=== PATIENT | male | born 1995 ===

== ENCOUNTER 2017-03-30 00:31 | Emergency (ER) | payer OTHER ==
[2017-03-30 00:46] VITALS: TEMP 97.5
[2017-03-30] MEDS ORDERED: Naproxen 550 mg Tab PO STA (00:54)
[2017-03-30] MEDS ORDERED: Naproxen 550 mg Tab PO ONE (01:00)
--- NOTE | 2017-03-30 01:59 | C.PDOC ---
History Of Present Illness 22 year old male presents to the ER with a complaint of neck pain and lower back pain after he slipped and fell while going down some steps at a parking garage. He denies head injury, LOC, dizziness, nausea, vomiting, visual changes , chest pain, SOB, abdominal pain. Time Seen by Provider: 03/30/17 00:40 Chief Complaint (Nursing): Back Pain History Per: Patient History/Exam Limitations: no limitations Onset/Duration Of Symptoms: Hrs Current Symptoms Are (Timing): Still Present Quality Of Discomfort: "Pain" Severity: Mild Previous Symptoms: None Associated Symptoms: None Exacerbating Factor(s): Movement Past Medical History Reviewed: Historical Data, Nursing Documentation, Vital Signs Vital Signs: Last Vital Signs Temp 97.5 F L 03/30/17 00:43 Pulse 68 03/30/17 02:02 Resp 16 03/30/17 02:02 BP 126/78 03/30/17 02:02 Pulse Ox 98 03/30/17 02:42 - Medical History PMH: No Chronic Diseases Surgical History: No Surg Hx Family History: States: No Known Family Hx - Social History Hx Alcohol Use: No Hx Substance Use: No Review Of Systems Except As Marked, All Systems Reviewed And Found Negative. Cardiovascular: Negative for: Chest Pain, Palpitations Respiratory: Negative for: Shortness of Breath Gastrointestinal: Negative for: Nausea, Vomiting, Abdominal Pain Musculoskeletal: Positive for: Neck Pain, Back Pain Neurological: Negative for: Headache, Dizziness Physical Exam - Physical Exam Appears: Well, Non-toxic, No Acute Distress Skin: Normal Color, Warm, Dry Head: Atraumatic, Normacephalic, No Swelling, No Abrasion, No Laceration Eye(s): bilateral: Normal Inspection, PERRL, EOMI Oral Mucosa: Moist Neck: Normal, Normal ROM, No Midline Cervical Tenderness, No Paracervical Tenderness, No Step Off Deformity, Supple Chest: Symmetrical, No Tenderness Cardiovascular: Rhythm Regular Respiratory: Normal Breath Sounds, No Rales, No Rhonchi, No Wheezing Gastrointestinal/Abdominal: Normal Exam, Bowel Sounds, Soft, No Tenderness Back: No CVA Tenderness, No Vertebral Tenderness, No Decreased ROM, Paraspinal Tenderness (Mild thoracic at T4-T5 and lumbar at L3-L4) Extremity: Normal ROM (x4), No Tenderness, No Deformity, No Swelling Extremity: Bilateral: Atraumatic, Normal Color And Temperature, Normal ROM Neurological/Psych: Oriented x3, Normal Speech, Normal Cognition, Normal Motor, Normal Sensation Gait: Steady ED Course And Treatment O2 Sat by Pulse Oximetry: 98 (Room air) Pulse Ox Interpretation: Normal - Radiology CXR: Interpreted by Me, Viewed By Me CXR Interpretation: Yes: No Acute Disease. No: Infiltrates, Pnemothorax, Other (Rib fracture) - Other Rad Cervical Spine x-ray X-Ray: Interpreted by Me, Viewed By Me Interpretation: No fracture or listhesis. Lumbar Spine x-ray X-Ray: Interpreted by Me, Viewed By Me Interpretation: No fracture or listhesis. Progress Note: CXR, cervical spine, and lumbar spine x-rays ordered and reviewed. Patient given PO Naprosyn and Flexeril. Reevaluation Time: 01:50 Reassessment Condition: Improved (Patient reassessed, is sleeping comfortably, easily arousable, states pain has improved. Xrays (-) for acute bony injury. Rxs given for naprosyn and flexeril, and patient instructed to follow up with PMD/clinic in 1-2 days. He understands he should return to [facility] if symptoms worsen.) Disposition Counseled Patient/Family Regarding: Studies Performed, Diagnosis, Need For Followup, Rx Given - Disposition Referrals: [facility] [Outside] Disposition: HOME/ ROUTINE Disposition Time: 01:50 Condition: STABLE Additional Instructions: FOLLOW UP WITH YOUR DOCTOR IN 1-2 DAYS USE MEDICATIONS NEEDED RETURN TO EMERGENCY ROOM IF SYMPTOMS WORSEN Prescriptions: Cyclobenzaprine [Cyclobenzaprine HCl] 10 mg PO BID PRN #15 tab PRN Reason: Muscle Spasm Naproxen [Naprosyn Tab] 375 mg PO BID PRN #20 tab PRN Reason: pain Instructions: Acute Low Back Pain (ED), Cervical Sprain (ED) Forms: [employer] (Mongolian) Print Language: PALESTINIAN - POA Present On Arrival: None - Clinical Impression Clinical Impression: Lumbar sprain, Cervical sprain, Fall - Scribe Statement The provider has reviewed the documentation as recorded by the Scribyee Dueñas All medical record entries made by the Scribe were at my direction and personally dictated by me. I have reviewed the chart and agree that the record accurately reflects my personal performance of the history, physical exam, medical decision making, and the department course for this patient. I have also personally directed, reviewed, and agree with the discharge instructions and disposition.
[2017-03-30 02:03] VITALS: BP 126/78; PULSE 68; RESP 16
[2017-03-30 02:37] VITALS: O2SAT 98
--- NOTE | 2017-03-30 08:48 | RAD ---
HISTORY: upper back pain after fall COMPARISON: No prior. TECHNIQUE: Chest PA and lateral FINDINGS: LUNGS: No active pulmonary disease. PLEURA: No significant pleural effusion identified. No pneumothorax apparent. CARDIOVASCULAR: Normal. OSSEOUS STRUCTURES: No significant abnormalities. VISUALIZED UPPER ABDOMEN: Normal. OTHER FINDINGS: None. IMPRESSION: No acute cardiopulmonary disease identified.
--- NOTE | 2017-03-30 08:52 | RAD ---
PROCEDURE: Cervical Spine Radiographs. HISTORY: Pain. COMPARISON: None. FINDINGS: BONES: Limited straightened cervical curvature is appreciated. No fracture. Dens Intact. DISC SPACES: Normal. SOFT TISSUES: Normal. No prevertebral soft tissue swelling. OTHER FINDINGS: None. IMPRESSION: Mildly straightened cervical curvature without fracture or spondylolisthesis appreciated. If symptoms persist or worsen follow-up MRI or CT is recommended.
--- NOTE | 2017-03-30 09:09 | RAD ---
PROCEDURE: Radiographs of the Lumbar Spine. HISTORY: low back pain after fall COMPARISON: No prior. FINDINGS: BONES: Mild straightening of lumbar curvature. No listhesis. No fracture. DISC SPACES: Limited disc height loss identified at L4-5 indicative degenerate disease here. OTHER FINDINGS: None. IMPRESSION: No acute fracture or spondylolisthesis. There is mild straightening of lumbar curvature. 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
== END 2017-03-30 02:05 | disposition home or self-care (01) ==
LOC: C.ER 00:31
DX: S13.4XXA Sprain of ligaments of cervical spine, initial encounter (principal); S33.5XXA Sprain of ligaments of lumbar spine, initial encounter; W10.8XXA Fall (on) (from) other stairs and steps, initial encounter; Y93.89 Activity, other specified; Y92.89 Other specified places as the place of occurrence of the external cause